=== PATIENT | female | born 1955 | race Caucasian/White ===

== ENCOUNTER 2022-11-20 10:27 | Outpatient (REF) | payer MEDICARE, SELFPAY | END 2022-11-20 10:28 | disposition home or self-care (01) | LOC: HO.SH 10:27 | PROVIDERS: Visit Provider Physician Assistant | DX: Z01.118 Encounter for examination of ears and hearing with other abnormal findings (principal); H90.41 Sensorineural hearing loss, unilateral, right ear, with unrestricted hearing on the contralateral side; H93.11 Tinnitus, right ear | CPT/HCPCS: 92557; 92567 ==

== ENCOUNTER 2023-01-04 10:04 | Outpatient (REF) | payer MEDICARE, SELFPAY ==
--- NOTE | ~2023-01-04 | MM_ITS ---
EXAMINATION: MM SCREENING DIGITAL BREAST TOMOSYNTHESIS, BILATERAL CLINICAL INFORMATION: Screening. Asymptomatic. Prior [id number] mammography currently unavailable. The lifetime risk of breast cancer based on the Tyrer-Cuzick Model is 7%. COMPARISON: None. TECHNIQUE: Digital breast tomosynthesis is performed in both the craniocaudal and mediolateral oblique views along with computer-aided detection (CAD). Synthesized 2D images are generated from the tomosynthesis. FINDINGS: The breasts are heterogeneously dense, which may obscure small masses (ACR BI-RADS breast composition Category c). There are no significant masses, abnormal calcifications, or other abnormalities. No architectural abnormality. The axilla and skin contours are unremarkable. Radiology department staff will attempt to retrieve prior [id number] mammography to allow for comparison in an addendum report. MM/MM tomosynthesis screening BI IMPRESSION: No mammographic evidence of malignancy. ASSESSMENT: BI-RADS 1: Negative RECOMMENDATION: Routine annual mammography screening. This patient's information was entered into a reminder system with a target due date for their next mammogram.
== END 2023-01-04 10:05 | disposition home or self-care (01) ==
LOC: HO.MAMMO 10:04
PROVIDERS: PCP Physician Assistant; Visit Provider Physician Assistant
DX: Z12.31 Encounter for screening mammogram for malignant neoplasm of breast (principal)
CPT/HCPCS: 77063; 77067